=== PATIENT | female | born 1945 | race Caucasian/White ===

== ENCOUNTER 2017-11-30 13:30 | Inpatient (IN) | payer MEDICARE, MEDICAID ==
[~2017-11-30] VITALS: Ht 170.2 cm; Wt 134.0 kg
[2017-11-30] MEDS: FAMOTIDINE 20 MG TAB PO SCH (01:05)
[~2017-11-30 13:30] MED LIST: ALBU1.257 NEB; ASPI325T4 PO; ATO40T PO; AZIT250T8 PO; HYDR-4683 PO; ISOS60TA PO; LEVO750T2 PO; LINE600T PO; LORA-655 PO; MIRT30TA3 PO; PRED-188 PO; QUET100T38 PO; SACC250C PO
[2017-11-30 13:40] VITALS: BP 127/82
[2017-11-30 14:08] LABS: Basophils # (auto) 0.1 uL; Basophils % (auto) 1.1 % (0.0-2.0); Eosinophils # (auto) 0.7 uL; Hematocrit 31.9 % (36.0-46.0); Hemoglobin 10.9 g/dL (12.2-16.2); Lymphocytes % (auto) 27.8 % (10.0-50.0); Mean Corpuscular Hemoglobin 33.1 pg (28.0-32.0); Mean Corpuscular Hgb Conc. 34.1 g/dL (32.0-36.0); Mean Corpuscular Volume 97.1 fL (80.0-100.0); Monocytes # (auto) 0.9 uL; Monocytes % (auto) 8.6 % (0.0-12.0); Neutrophils # (auto) 6.1 uL; Neutrophils % (auto) 56.5 % (37.0-80.0); Platelet Count (auto) 295 10^3/uL (140-450); Red Blood Cells 3.29 10^6/uL (4.0-5.20); Red Cell Distribution Width 16.3 % (11.8-14.3); White Blood Cell 10.9 10^3/uL (4.4-10.8)
[2017-11-30 14:37] LABS: Alanine Aminotransferase 30 U/L (13-56); Albumin 3.3 g/dL (3.4-5.0); Alkaline Phosphatase 141 U/L (45-117); Anion Gap 14 (5-15); Aspartate Aminotransferase 14 U/L (15-37); BUN/Creatinine Ratio 47.3; Bilirubin, Total 0.3 mg/dL (0.2-1.0); Calcium 10.1 mg/dL (8.5-10.1); Carbon Dioxide 25 mmol/L (21-32); Chloride 93 mmol/L (98-107); GFR African American 31 mL/min; GFR Non-African American 26 mL/min; Glucose 227 mg/dL (74-106); Potassium 4.3 mmol/L (3.5-5.1); Sodium 132 mmol/L (136-145); Total Protein 7.6 g/dL (6.4-8.2)
[2017-11-30 14:51] LABS: Blood Urea Nitrogen 96 mg/dL (7-18)
[2017-11-30] MEDS ORDERED: NITROGLYCERIN 0.4 MG SL TAB SL PRN (15:45)
[2017-11-30] MEDS ORDERED: MORPHINE SULFATE 4 MG/ML SYR/VIAL IV PRN (15:45)
[2017-11-30] MEDS ORDERED: DEXTROSE (50%) 50ML SYRG IV PRN (15:45)
[2017-11-30 16:00] VITALS: BP 157/66
[2017-11-30] MEDS ORDERED: ONDANSETRON HCL 4 MG/2 ML VIAL IV PRN (16:00)
[2017-11-30] MEDS: SODIUM CHLORIDE 0.9% 1,000 ML IV SCH (16:00)
[2017-11-30] MEDS ORDERED: HYDROmorphone HCL 2 MG/ML VL IV PRN (16:00)
[2017-11-30 17:17] VITALS: BP 157/66
[2017-11-30 18:01] VITALS: BP 118/62
[2017-11-30] MEDS: IPRATROPIUM BROM 0.5 MG/2.5ML INH SOL NEB SCH (18:01)
[2017-11-30] MEDS: ALBUTEROL SULF 2.5 MG/0.5ML(0.5%) NEB SOLN NEB SCH (18:01)
[2017-11-30] MEDS: PIPERACILLIN-TAZOB 2.25GM 50 ML IV SCH (18:48)
[2017-11-30 18:57] LABS: Urine Bacteria FEW /hpf (None Seen); Urine Blood Negative /uL (Negative); Urine Specific Gravity 1.011 (1.001-1.035); Urine WBC 102 /hpf (0 - 5)
[2017-11-30] MEDS: ACCU-CHEK COMFORT CURVE STRIP VI SCH (18:57)
[2017-11-30] MEDS: InsuLIN REG 1unit/0.01ml Soln (100units/ml) SC SCH (18:57)
[2017-11-30 20:06] VITALS: BP 153/71
[2017-11-30 22:01] VITALS: BP 121/54
[2017-12-01] VITALS (8 sets, daily range): BP systolic 103–149; BP diastolic 52–71
[2017-12-01] MEDS: PHENYTOIN 100 MG/4 ML SUSP GT SCH ×4 (01:05→21:39)
[2017-12-01] MEDS: PIPERACILLIN-TAZOB 2.25GM 50 ML IV SCH ×4 (01:13→18:00)
[2017-12-01] MEDS: ACCU-CHEK COMFORT CURVE STRIP VI SCH ×4 (01:25→18:00)
[2017-12-01] MEDS: InsuLIN REG 1unit/0.01ml Soln (100units/ml) SC SCH ×4 (01:35→18:00)
[2017-12-01] MEDS: Glucerna 1.2 Cal 1Liter BOTTLE GT SCH ×2 (02:00→21:00)
[2017-12-01] MEDS: SODIUM CHLORIDE 0.9% 1,000 ML IV SCH ×3 (02:50→21:40)
[2017-12-01] MEDS ORDERED: diphenhdrAMINE HCL 50 MG/1 ML VL IV ONE (04:30)
[2017-12-01] MEDS: IPRATROPIUM BROM 0.5 MG/2.5ML INH SOL NEB SCH ×4 (06:00→18:42)
[2017-12-01] MEDS: ALBUTEROL SULF 2.5 MG/0.5ML(0.5%) NEB SOLN NEB SCH ×4 (06:00→18:42)
[2017-12-01] MEDS: ENOXAPARIN SOD 40 MG/0.4 ML SYRINGE SC SCH (09:16)
[2017-12-01] MEDS: FAMOTIDINE 20 MG TAB PO SCH ×2 (09:16→21:39)
[2017-12-01 10:19] LABS: Hematocrit 29.4 % (36.0-46.0); Mean Corpuscular Hemoglobin 33.6 pg (28.0-32.0); Mean Corpuscular Hgb Conc. 34.2 g/dL (32.0-36.0); Mean Corpuscular Volume 98.3 fL (80.0-100.0); Platelet Count (auto) 296 10^3/uL (140-450); Red Blood Cells 2.99 10^6/uL (4.0-5.20); Red Cell Distribution Width 16.3 % (11.8-14.3)
[2017-12-01 10:27] LABS: Basophils % (manual) 0 (0.0-2.0); Blast Cells 0; Myelocytes % 0; Promyelocytes % 0; Reactive Lymphocytes 0
[2017-12-01 10:30] LABS: INR 0.97 (0.9-1.15); Partial Thromboplastin Time 26.3 sec (23.78-33.04); Prothrombin Time 10.4 sec (9.27-12.13)
[2017-12-01 10:36] LABS: Calcium 9.3 mg/dL (8.5-10.1); Potassium 3.8 mmol/L (3.5-5.1)
[2017-12-01 13:14] LABS: Eosinophils % (manual) 6 (0-7); Lymphocytes % (manual) 27 (10.0-50.0); Metamyelocytes % 2; Monocytes % (manual) 9 (0-12)
[2017-12-01 13:15] LABS: Band Neutrophils % (manual) 3
[2017-12-02] MEDS: PIPERACILLIN-TAZOB 2.25GM 50 ML IV SCH ×4 (00:05→18:22)
[2017-12-02] MEDS: InsuLIN REG 1unit/0.01ml Soln (100units/ml) SC SCH ×4 (00:09→18:21)
[2017-12-02] MEDS: ACCU-CHEK COMFORT CURVE STRIP VI SCH ×4 (00:09→18:21)
[2017-12-02] MEDS: ALBUTEROL SULF 2.5 MG/0.5ML(0.5%) NEB SOLN NEB SCH ×4 (00:10→18:52)
[2017-12-02] MEDS: IPRATROPIUM BROM 0.5 MG/2.5ML INH SOL NEB SCH ×4 (00:10→18:52)
[2017-12-02] MEDS ORDERED: DOCU100T15 PO (02:25)
[2017-12-02] MEDS ORDERED: LACTCAP3 OR (02:25)
[2017-12-02] MEDS ORDERED: ASCO-22 PO (02:25)
[2017-12-02] MEDS ORDERED: ENOX80IN SC (02:38)
[2017-12-02] MEDS ORDERED: ZINC220C8 PO (02:38)
[2017-12-02] MEDS ORDERED: IBUP400T21 PO (02:38)
[2017-12-02] MEDS ORDERED: ATEN100T PO (02:38)
[2017-12-02] MEDS ORDERED: FERR-20 PO (02:38)
[2017-12-02] MEDS ORDERED: ACE3T PO (02:38)
[2017-12-02] MEDS ORDERED: MULTTAB99 GT (02:38)
[2017-12-02] MEDS ORDERED: LISI-646 PO (02:38)
[2017-12-02] MEDS ORDERED: PHEN50CH4 OR (02:38)
[2017-12-02 05:16] VITALS: BP 117/61
[2017-12-02] MEDS: PHENYTOIN 100 MG/4 ML SUSP GT SCH ×3 (06:52→22:58)
[2017-12-02 09:00] VITALS: BP 110/62
[2017-12-02] MEDS: SODIUM CHLORIDE 0.9% 1,000 ML IV SCH ×2 (10:41→18:18)
[2017-12-02] MEDS: ENOXAPARIN SOD 40 MG/0.4 ML SYRINGE SC SCH (10:43)
[2017-12-02] MEDS: FAMOTIDINE 20 MG TAB PO SCH ×2 (10:43→22:08)
[2017-12-02 13:00] VITALS: BP 133/81
[2017-12-02 13:07] VITALS: BP 112/64
[2017-12-02 17:00] VITALS: BP 116/60
[2017-12-02 22:00] VITALS: BP 149/78
[2017-12-02] MEDS: HYDROcodone-ACET 5/325MG TAB PO PRN (22:09)
[2017-12-02] MEDS: Glucerna 1.2 Cal 1Liter BOTTLE GT SCH (23:54)
[2017-12-03] MEDS: PIPERACILLIN-TAZOB 2.25GM 50 ML IV SCH ×4 (00:50→18:55)
[2017-12-03] MEDS: ACCU-CHEK COMFORT CURVE STRIP VI SCH ×4 (00:50→17:01)
[2017-12-03] MEDS: IPRATROPIUM BROM 0.5 MG/2.5ML INH SOL NEB SCH ×4 (00:52→18:06)
[2017-12-03] MEDS: ALBUTEROL SULF 2.5 MG/0.5ML(0.5%) NEB SOLN NEB SCH ×4 (00:52→18:06)
[2017-12-03] MEDS: InsuLIN REG 1unit/0.01ml Soln (100units/ml) SC SCH ×4 (00:55→17:02)
[2017-12-03 05:00] VITALS: BP 137/73
[2017-12-03 05:48] LABS: Basophils # (auto) 0 uL; Basophils % (auto) 0.6 % (0.0-2.0); Eosinophils # (auto) 0.4 uL; Eosinophils % (auto) 6.7 % (0.0-7.0); Hematocrit 27.9 % (36.0-46.0); Hemoglobin 9.5 g/dL (12.2-16.2); Lymphocytes # (auto) 1.6 uL; Lymphocytes % (auto) 24.9 % (10.0-50.0); Mean Corpuscular Hgb Conc. 33.9 g/dL (32.0-36.0); Mean Corpuscular Volume 100.3 fL (80.0-100.0); Monocytes # (auto) 0.7 uL; Monocytes % (auto) 11.2 % (0.0-12.0); Neutrophils # (auto) 3.6 uL; Neutrophils % (auto) 56.6 % (37.0-80.0); Nucleated Red Blood Cells % 0.1 %; Platelet Count (auto) 260 10^3/uL (140-450); Red Blood Cells 2.78 10^6/uL (4.0-5.20); White Blood Cell 6.4 10^3/uL (4.4-10.8)
[2017-12-03 05:58] LABS: BUN/Creatinine Ratio 36.5; Calcium 8.8 mg/dL (8.5-10.1); Potassium 3.7 mmol/L (3.5-5.1)
[2017-12-03] MEDS: PHENYTOIN 100 MG/4 ML SUSP GT SCH ×3 (06:10→22:15)
[2017-12-03] MEDS: SODIUM CHLORIDE 0.9% 1,000 ML IV SCH ×2 (06:28→13:58)
[2017-12-03 09:00] VITALS: BP 131/70
[2017-12-03] MEDS: ENOXAPARIN SOD 40 MG/0.4 ML SYRINGE SC SCH (12:32)
[2017-12-03] MEDS: FAMOTIDINE 20 MG TAB PO SCH ×2 (12:32→22:15)
[2017-12-03 12:47] VITALS: BP 148/76
[2017-12-03 13:24] VITALS: BP 148/76
[2017-12-03 17:00] VITALS: BP 155/79
[2017-12-03 21:44] VITALS: BP 162/98
[2017-12-03] MEDS: HYDROcodone-ACET 5/325MG TAB PO PRN (22:15)
[2017-12-03] MEDS: Glucerna 1.2 Cal 1Liter BOTTLE GT SCH (23:15)
[2017-12-04] MEDS: ACCU-CHEK COMFORT CURVE STRIP VI SCH ×4 (00:01→18:07)
[2017-12-04] MEDS: SODIUM CHLORIDE 0.9% 1,000 ML IV SCH ×3 (00:01→19:45)
[2017-12-04] MEDS: InsuLIN REG 1unit/0.01ml Soln (100units/ml) SC SCH ×4 (00:01→18:16)
[2017-12-04] MEDS: PIPERACILLIN-TAZOB 2.25GM 50 ML IV SCH ×3 (00:01→11:34)
[2017-12-04] MEDS: IPRATROPIUM BROM 0.5 MG/2.5ML INH SOL NEB SCH ×4 (00:46→18:26)
[2017-12-04] MEDS: ALBUTEROL SULF 2.5 MG/0.5ML(0.5%) NEB SOLN NEB SCH ×4 (00:46→18:26)
[2017-12-04 04:47] VITALS: BP 155/86
[2017-12-04] MEDS: PHENYTOIN 100 MG/4 ML SUSP GT SCH ×3 (06:25→22:00)
[2017-12-04 07:19] VITALS: BP 135/69
[2017-12-04 08:09] LABS: Basophils # (auto) 0 uL; Basophils % (auto) 0.6 % (0.0-2.0); Eosinophils # (auto) 0.5 uL; Eosinophils % (auto) 6.1 % (0.0-7.0); Hematocrit 27.3 % (36.0-46.0); Hemoglobin 9.3 g/dL (12.2-16.2); Lymphocytes # (auto) 1.5 uL; Lymphocytes % (auto) 18.9 % (10.0-50.0); Mean Corpuscular Hemoglobin 33.7 pg (28.0-32.0); Mean Corpuscular Volume 99.1 fL (80.0-100.0); Monocytes # (auto) 0.7 uL; Monocytes % (auto) 8.4 % (0.0-12.0); Neutrophils # (auto) 5.3 uL; Platelet Count (auto) 258 10^3/uL (140-450); Red Blood Cells 2.75 10^6/uL (4.0-5.20); Red Cell Distribution Width 15.6 % (11.8-14.3)
[2017-12-04 08:26] LABS: BUN/Creatinine Ratio 30.4; Calcium 8.6 mg/dL (8.5-10.1); Potassium 3.4 mmol/L (3.5-5.1)
[2017-12-04] MEDS: FAMOTIDINE 20 MG TAB PO SCH ×2 (10:24→22:00)
[2017-12-04] MEDS: ENOXAPARIN SOD 40 MG/0.4 ML SYRINGE SC SCH (10:25)
[2017-12-04 13:14] VITALS: BP 127/73
[2017-12-04 16:40] VITALS: BP 142/80
[2017-12-04] MEDS ORDERED: PIPERACILLIN-TAZOB 3.375GM 100 ML IV SCH (18:00)
== END 2017-12-04 22:30 | DRG 870 ==
LOC: EDBD 13:30 → ER 13:33 → TELE 13:34 → TELE-CENTR 12-01 08:37
PROVIDERS: ADMIT Internal Medicine; ATTEND Internal Medicine Cardiovascular Disease
PROC: 5A1955Z Respiratory Ventilation, Greater than 96 Consecutive Hours (ICD-10-PCS; principal; 2017-11-30)
DX: A41.9 Sepsis, unspecified organism (principal); G93.40 Encephalopathy, unspecified; N17.9 Acute kidney failure, unspecified; J96.10 Chronic respiratory failure, unspecified whether with hypoxia or hypercapnia; I50.32 Chronic diastolic (congestive) heart failure; Z68.42 Body mass index [BMI] 45.0-49.9, adult; Z99.11 Dependence on respirator [ventilator] status; I11.0 Hypertensive heart disease with heart failure; D64.9 Anemia, unspecified; E86.9 Volume depletion, unspecified; E11.9 Type 2 diabetes mellitus without complications; E66.01 Morbid (severe) obesity due to excess calories; F03.90 Unspecified dementia, unspecified severity, without behavioral disturbance, psychotic disturbance, mood disturbance, and anxiety; G40.909 Epilepsy, unspecified, not intractable, without status epilepticus; I25.10 Atherosclerotic heart disease of native coronary artery without angina pectoris; I70.0 Atherosclerosis of aorta; J44.9 Chronic obstructive pulmonary disease, unspecified; Z87.820 Personal history of traumatic brain injury; Z90.710 Acquired absence of both cervix and uterus; Z88.5 Allergy status to narcotic agent; Z79.899 Other long term (current) drug therapy; Z79.82 Long term (current) use of aspirin; Z79.51 Long term (current) use of inhaled steroids; Z93.0 Tracheostomy status; Z90.49 Acquired absence of other specified parts of digestive tract
CPT/HCPCS: 36415; 36600; 70450; 71045; 80048; 80053; 80185; 81001; 82805; 82962; 84484; 85007; 85025; 85027; 85610; 85730; 87040; 87070; 87077; 87081; 87086; 87088; 87186; 87205; 93005; 94002; 94003; 94640; A4605; J1642; J1815; J2543

== ENCOUNTER 2018-01-08 14:57 | Inpatient (IN) | payer MEDICARE, MEDICAID ==
[~2018-01-08] VITALS: Ht 157.5 cm; Wt 121.6 kg
[~2018-01-08 14:57] MED LIST changes: +ACE3T PO; +ASCO-22 PO; +ATEN100T PO; +DOCU100T15 PO; +ENOX80IN SC; +FERR-20 PO; +IBUP400T21 PO; +LACTCAP3 OR; +LINE1TAB6 PO; -LINE600T PO; +LISI-646 PO; +MULTTAB99 GT; +PHEN50CH4 OR; +ZINC220C8 PO
[2018-01-08 16:29] LABS: Hemoglobin 10.2 g/dL (12.2-16.2)
[2018-01-08 16:30] LABS: Hematocrit 29.3 % (36.0-46.0); Mean Corpuscular Hemoglobin 34.5 pg (28.0-32.0); Mean Corpuscular Hgb Conc. 34.9 g/dL (32.0-36.0); Mean Corpuscular Volume 98.9 fL (80.0-100.0); Platelet Count (auto) 311 10^3/uL (140-450); Red Blood Cells 2.96 10^6/uL (4.0-5.20); Red Cell Distribution Width 14.4 % (11.8-14.3); White Blood Cell 11.1 10^3/uL (4.4-10.8)
[2018-01-08 16:44] LABS: Albumin 3.2 g/dL (3.4-5.0); BUN/Creatinine Ratio 34.1; Bilirubin, Total 0.2 mg/dL (0.2-1.0); Calcium 9.7 mg/dL (8.5-10.1); Magnesium 2.3 mg/dL (1.6-2.6); Potassium 3.5 mmol/L (3.5-5.1); Total Protein 6.9 g/dL (6.4-8.2)
[2018-01-08 17:01] LABS: Lactic Acid w/Reflex 3.6 mmol/L (0.4-2.0)
[2018-01-08 17:02] LABS: Basophils % (manual) 0 (0.0-2.0); Blast Cells 0; Eosinophils % (manual) 0 (0-7); Promyelocytes % 0; Reactive Lymphocytes 0
[2018-01-08] MEDS ORDERED: cefTRIAXone 1GM/10ml IVPUSH 10 ML IV ONE (18:00)
[2018-01-08] MEDS ORDERED: AZITHROMYCIN 500MG/ 250ML 250 ML IV ONE (18:00)
[2018-01-08 18:20] VITALS: BP 130/73
[2018-01-08 19:13] LABS: Band Neutrophils % (manual) 1; Lymphocytes % (manual) 19 (10.0-50.0); Monocytes % (manual) 8 (0-12)
[2018-01-08 19:14] LABS: Metamyelocytes % 1; Myelocytes % 1
[2018-01-08] MEDS ORDERED: ACETYLCYSTEINE ORAL for CIN 20%(200MG/ML) 4ML PO ONE (19:15)
[2018-01-08 19:42] LABS: Urine Amorphous Crystal FEW /hpf (None Seen); Urine Bacteria FEW /hpf (None Seen); Urine Blood Negative /uL (Negative); Urine Specific Gravity 1.011 (1.001-1.035); Urine WBC <1 /hpf (0 - 5)
[2018-01-08] MEDS ORDERED: ACETYLCYSTEINE 20%(200MG/ML) SOLN 30ML ONE (19:50)
[2018-01-08 20:26] VITALS: BP 146/80
[2018-01-08] MEDS ORDERED: NITROGLYCERIN 0.4 MG SL TAB SL PRN (20:45)
[2018-01-08] MEDS ORDERED: SODIUM CHL 3% 500 ML IV ONE (20:45)
[2018-01-08 21:25] VITALS: BP 146/80
[2018-01-08] MEDS: cefTAZidime 1 GM in SODIUM CHL 0.9% 50 ML IV SCH (21:44)
[2018-01-08] MEDS: VANCOMYCIN 1GM/250ML 250 ML IV SCH (22:00)
[2018-01-08 22:05] VITALS: BP 134/78
[2018-01-08 22:58] VITALS: BP 144/67
[2018-01-09] MEDS: IPRATROPIUM BROM 0.5 MG/2.5ML INH SOL NEB SCH ×4 (00:30→18:20)
[2018-01-09] MEDS: ALBUTEROL SULF 2.5 MG/0.5ML(0.5%) NEB SOLN NEB SCH ×4 (00:30→18:20)
[2018-01-09 04:47] VITALS: BP 117/53
[2018-01-09 09:00] VITALS: BP 120/65
[2018-01-09] MEDS: cefTAZidime 1 GM in SODIUM CHL 0.9% 50 ML IV SCH ×2 (10:29→23:29)
[2018-01-09 13:00] VITALS: BP 98/53
[2018-01-09 13:34] LABS: Basophils # (auto) 0 uL; Basophils % (auto) 0.4 % (0.0-2.0); Eosinophils # (auto) 0.3 uL; Hematocrit 30.2 % (36.0-46.0); Lymphocytes # (auto) 1.5 uL; Lymphocytes % (auto) 17.3 % (10.0-50.0); Mean Corpuscular Hemoglobin 33.4 pg (28.0-32.0); Mean Corpuscular Hgb Conc. 33.2 g/dL (32.0-36.0); Mean Corpuscular Volume 100.7 fL (80.0-100.0); Monocytes # (auto) 0.5 uL; Monocytes % (auto) 6.4 % (0.0-12.0); Neutrophils # (auto) 6.2 uL; Neutrophils % (auto) 72.9 % (37.0-80.0); Nucleated Red Blood Cells % 0.1 %; Platelet Count (auto) 293 10^3/uL (140-450); Red Cell Distribution Width 15.2 % (11.8-14.3); White Blood Cell 8.4 10^3/uL (4.4-10.8)
[2018-01-09 14:00] LABS: BUN/Creatinine Ratio 33.6; Bilirubin, Total 0.2 mg/dL (0.2-1.0); Potassium 3.7 mmol/L (3.5-5.1); Total Protein 6.6 g/dL (6.4-8.2)
[2018-01-09] MEDS: Glucerna 1.2 Cal 1Liter BOTTLE GT SCH (14:54)
[2018-01-09 17:00] VITALS: BP 114/65
[2018-01-09] MEDS ORDERED: DEXTROSE (50%) 50ML SYRG IV PRN (17:00)
[2018-01-09] MEDS: InsuLIN REG 1unit/0.01ml Soln (100units/ml) SC SCH (20:21)
[2018-01-09] MEDS: ACCU-CHEK COMFORT CURVE STRIP VI SCH (20:22)
[2018-01-09 22:00] VITALS: BP 116/63
[2018-01-09] MEDS: VANCOMYCIN 1GM/250ML 250 ML IV SCH (23:29)
[2018-01-10] VITALS (8 sets, daily range): BP systolic 116–132; BP diastolic 55–68
[2018-01-10] MEDS: ALBUTEROL SULF 2.5 MG/0.5ML(0.5%) NEB SOLN NEB SCH ×4 (00:32→19:11)
[2018-01-10] MEDS: IPRATROPIUM BROM 0.5 MG/2.5ML INH SOL NEB SCH ×4 (00:32→19:11)
[2018-01-10] MEDS: ACCU-CHEK COMFORT CURVE STRIP VI SCH ×6 (00:56→23:26)
[2018-01-10] MEDS: InsuLIN REG 1unit/0.01ml Soln (100units/ml) SC SCH ×6 (00:56→23:26)
[2018-01-10] MEDS: cefTAZidime 1 GM in SODIUM CHL 0.9% 50 ML IV SCH ×2 (10:41→23:30)
[2018-01-10] MEDS: VANCOMYCIN 1GM/250ML 250 ML IV SCH (22:52)
[2018-01-11] MEDS: IPRATROPIUM BROM 0.5 MG/2.5ML INH SOL NEB SCH ×5 (00:34→23:57)
[2018-01-11] MEDS: ALBUTEROL SULF 2.5 MG/0.5ML(0.5%) NEB SOLN NEB SCH ×5 (00:35→23:57)
[2018-01-11] MEDS: ACCU-CHEK COMFORT CURVE STRIP VI SCH ×6 (02:14→19:50)
[2018-01-11] MEDS: InsuLIN REG 1unit/0.01ml Soln (100units/ml) SC SCH ×6 (02:14→19:50)
[2018-01-11 05:00] VITALS: BP 111/57
[2018-01-11 06:06] LABS: Basophils # (auto) 0.1 uL; Basophils % (auto) 0.5 % (0.0-2.0); Eosinophils # (auto) 0.3 uL; Monocytes # (auto) 0.7 uL; White Blood Cell 10.1 10^3/uL (4.4-10.8)
[2018-01-11 06:09] LABS: Eosinophils % (auto) 2.8 % (0.0-7.0); Hematocrit 30.6 % (36.0-46.0); Hemoglobin 10.6 g/dL (12.2-16.2); Lymphocytes # (auto) 1.4 uL; Lymphocytes % (auto) 14.1 % (10.0-50.0); Mean Corpuscular Hemoglobin 35.2 pg (28.0-32.0); Mean Corpuscular Hgb Conc. 34.7 g/dL (32.0-36.0); Mean Corpuscular Volume 101.3 fL (80.0-100.0); Monocytes % (auto) 6.9 % (0.0-12.0); Neutrophils # (auto) 7.7 uL; Neutrophils % (auto) 75.7 % (37.0-80.0); Nucleated Red Blood Cells % 0.1 %; Platelet Count (auto) 291 10^3/uL (140-450); Red Blood Cells 3.02 10^6/uL (4.0-5.20)
[2018-01-11 09:00] VITALS: BP 116/72
[2018-01-11] MEDS: cefTAZidime 1 GM in SODIUM CHL 0.9% 50 ML IV SCH (10:25)
[2018-01-11 11:35] LABS: Albumin 3.1 g/dL (3.4-5.0); BUN/Creatinine Ratio 31.6; Bilirubin, Total 0.2 mg/dL (0.2-1.0); Calcium 9.9 mg/dL (8.5-10.1); Potassium 3.9 mmol/L (3.5-5.1); Total Protein 7.2 g/dL (6.4-8.2)
[2018-01-11] MEDS ORDERED: HYDROmorphone HCL 2 MG/ML VL IV PRN (12:00)
[2018-01-11] MEDS: HYDROmorphone HCL 2 MG/ML VL IV PRN ×3 (12:30→18:00)
[2018-01-11 13:00] VITALS: BP 112/59
[2018-01-11] MEDS: PIPERACILLIN-TAZO 4.5GM 100 ML IV SCH ×2 (14:31→23:58)
[2018-01-11 17:00] VITALS: BP 113/42
[2018-01-11 22:00] VITALS: BP 122/69
[2018-01-11] MEDS: VANCOMYCIN 1GM/250ML 250 ML IV SCH (22:20)
[2018-01-12] VITALS (7 sets, daily range): BP systolic 100–124; BP diastolic 32–58
[2018-01-12] MEDS: InsuLIN REG 1unit/0.01ml Soln (100units/ml) SC SCH ×6 (00:12→19:43)
[2018-01-12] MEDS: ACCU-CHEK COMFORT CURVE STRIP VI SCH ×6 (00:12→19:43)
[2018-01-12] MEDS: IPRATROPIUM BROM 0.5 MG/2.5ML INH SOL NEB SCH ×4 (05:44→23:24)
[2018-01-12] MEDS: ALBUTEROL SULF 2.5 MG/0.5ML(0.5%) NEB SOLN NEB SCH ×4 (05:44→23:24)
[2018-01-12] MEDS: PIPERACILLIN-TAZO 4.5GM 100 ML IV SCH ×2 (05:45→14:00)
[2018-01-12] MEDS: HYDROmorphone HCL 2 MG/ML VL IV PRN ×5 (07:30→18:01)
[2018-01-12] MEDS: Glucerna 1.2 Cal 1Liter BOTTLE GT SCH (10:28)
[2018-01-12] MEDS: VANCOMYCIN 1GM/250ML 250 ML IV SCH (22:00)
[2018-01-13] MEDS: PIPERACILLIN-TAZO 4.5GM 100 ML IV SCH ×3 (00:05→13:39)
[2018-01-13] MEDS: ACCU-CHEK COMFORT CURVE STRIP VI SCH ×5 (00:05→18:18)
[2018-01-13] MEDS: InsuLIN REG 1unit/0.01ml Soln (100units/ml) SC SCH ×5 (00:05→18:18)
[2018-01-13 05:41] VITALS: BP 116/55
[2018-01-13] MEDS: ALBUTEROL SULF 2.5 MG/0.5ML(0.5%) NEB SOLN NEB SCH ×3 (05:44→17:55)
[2018-01-13] MEDS: IPRATROPIUM BROM 0.5 MG/2.5ML INH SOL NEB SCH ×3 (05:44→17:55)
[2018-01-13 06:00] LABS: Basophils # (auto) 0 uL; Basophils % (auto) 0.4 % (0.0-2.0); Eosinophils # (auto) 0.3 uL; Hematocrit 26.7 % (36.0-46.0); Hemoglobin 9.3 g/dL (12.2-16.2); Lymphocytes # (auto) 1.4 uL; Monocytes # (auto) 0.5 uL; White Blood Cell 10.3 10^3/uL (4.4-10.8)
[2018-01-13 06:03] LABS: Eosinophils % (auto) 2.8 % (0.0-7.0); Lymphocytes % (auto) 13.5 % (10.0-50.0); Mean Corpuscular Hgb Conc. 34.8 g/dL (32.0-36.0); Monocytes % (auto) 4.9 % (0.0-12.0); Neutrophils % (auto) 78.4 % (37.0-80.0); Platelet Count (auto) 253 10^3/uL (140-450); Red Blood Cells 2.63 10^6/uL (4.0-5.20); Red Cell Distribution Width 14.9 % (11.8-14.3)
[2018-01-13 06:04] LABS: Mean Corpuscular Hemoglobin 35.1 pg (28.0-32.0); Mean Corpuscular Volume 101.1 fL (80.0-100.0)
[2018-01-13 06:28] LABS: Potassium 3.7 mmol/L (3.5-5.1)
[2018-01-13 06:35] LABS: Albumin 2.6 g/dL (3.4-5.0); BUN/Creatinine Ratio 21.9; Calcium 9.2 mg/dL (8.5-10.1)
[2018-01-13 06:38] LABS: Bilirubin, Total 0.4 mg/dL (0.2-1.0); Total Protein 6.2 g/dL (6.4-8.2)
[2018-01-13 07:52] VITALS: BP 104/59
[2018-01-13 11:51] VITALS: BP 94/40
[2018-01-13 17:00] VITALS: BP 96/39
== END 2018-01-13 18:33 | disposition home or self-care (01) | DRG 870 ==
LOC: EDBD 14:57 → ER 14:57 → TELE 14:58 → TELE-EAST 22:58
PROVIDERS: ADMIT Internal Medicine Cardiovascular Disease; ATTEND Internal Medicine Cardiovascular Disease
PROC: 5A1955Z Respiratory Ventilation, Greater than 96 Consecutive Hours (ICD-10-PCS; principal; 2018-01-08)
PROC: 0BH17EZ Insertion of Endotracheal Airway into Trachea, Via Natural or Artificial Opening (ICD-10-PCS; 2018-01-08)
DX: A41.9 Sepsis, unspecified organism (principal); J96.90 Respiratory failure, unspecified, unspecified whether with hypoxia or hypercapnia; E87.1 Hypo-osmolality and hyponatremia; E44.1 Mild protein-calorie malnutrition; E66.2 Morbid (severe) obesity with alveolar hypoventilation; Z99.11 Dependence on respirator [ventilator] status; Z68.42 Body mass index [BMI] 45.0-49.9, adult; E11.9 Type 2 diabetes mellitus without complications; E78.5 Hyperlipidemia, unspecified; I11.0 Hypertensive heart disease with heart failure; I25.10 Atherosclerotic heart disease of native coronary artery without angina pectoris; G40.909 Epilepsy, unspecified, not intractable, without status epilepticus; F03.90 Unspecified dementia, unspecified severity, without behavioral disturbance, psychotic disturbance, mood disturbance, and anxiety; J44.9 Chronic obstructive pulmonary disease, unspecified; I50.9 Heart failure, unspecified; Z86.73 Personal history of transient ischemic attack (TIA), and cerebral infarction without residual deficits; Z93.1 Gastrostomy status; Z90.710 Acquired absence of both cervix and uterus; Z93.0 Tracheostomy status; Z88.5 Allergy status to narcotic agent; Z88.8 Allergy status to other drugs, medicaments and biological substances
CPT/HCPCS: 36415; 36600; 71045; 71250; 74176; 80053; 80202; 81001; 82805; 82962; 83605; 83735; 84484; 85007; 85025; 85027; 87040; 87070; 87077; 87081; 87186; 87205; 92610; 93005; 93306; 94002; 94003; 94640; 96361; 96365; 96375; A4605; A6257; J0696; J1642; J1815; J2543

== ENCOUNTER 2018-01-15 18:01 | Observation (INO) | payer MEDICARE, MEDICAID ==
[~2018-01-15] VITALS: Ht 157.5 cm; Wt 136.1 kg
[2018-01-15 18:40] LABS: Eosinophils # (auto) 0.2 uL; Hemoglobin 9.6 g/dL (12.2-16.2); Lymphocytes # (auto) 1.8 uL; Monocytes # (auto) 0.5 uL; White Blood Cell 8.9 10^3/uL (4.4-10.8)
[2018-01-15 18:42] LABS: Basophils # (auto) 0.1 uL; Basophils % (auto) 0.9 % (0.0-2.0); Eosinophils % (auto) 2.2 % (0.0-7.0); Hematocrit 27.6 % (36.0-46.0); Lymphocytes % (auto) 20.1 % (10.0-50.0); Mean Corpuscular Hemoglobin 34.9 pg (28.0-32.0); Mean Corpuscular Hgb Conc. 34.9 g/dL (32.0-36.0); Monocytes % (auto) 5.7 % (0.0-12.0); Neutrophils # (auto) 6.4 uL; Neutrophils % (auto) 71.1 % (37.0-80.0); Nucleated Red Blood Cells % 0.1 %; Platelet Count (auto) 262 10^3/uL (140-450); Red Blood Cells 2.76 10^6/uL (4.0-5.20); Red Cell Distribution Width 14.6 % (11.8-14.3)
[2018-01-15 18:53] VITALS: BP 143/83
[2018-01-15 18:54] LABS: Albumin 2.7 g/dL (3.4-5.0); BUN/Creatinine Ratio 22.7; Bilirubin, Total 0.3 mg/dL (0.2-1.0); Calcium 9.3 mg/dL (8.5-10.1); Magnesium 2.5 mg/dL (1.6-2.6); Potassium 3.5 mmol/L (3.5-5.1); Total Protein 6.6 g/dL (6.4-8.2)
== END 2018-01-15 21:20 | disposition home or self-care (01) | DRG 204 ==
LOC: ER 18:01 → EDBD 18:01 → OVERFLOW 18:02 → ER 21:20
PROVIDERS: ADMIT Family Medicine; ATTEND Family Medicine
DX: R06.03 Acute respiratory distress (principal); I13.0 Hypertensive heart and chronic kidney disease with heart failure and stage 1 through stage 4 chronic kidney disease, or unspecified chronic kidney disease; Z99.11 Dependence on respirator [ventilator] status; I50.9 Heart failure, unspecified; E11.22 Type 2 diabetes mellitus with diabetic chronic kidney disease; N18.3 Chronic kidney disease, stage 3 (moderate); D63.8 Anemia in other chronic diseases classified elsewhere; Z86.73 Personal history of transient ischemic attack (TIA), and cerebral infarction without residual deficits; Z90.710 Acquired absence of both cervix and uterus; Z93.0 Tracheostomy status; Z93.1 Gastrostomy status; Z74.01 Bed confinement status; Z90.49 Acquired absence of other specified parts of digestive tract
CPT/HCPCS: 36415; 71045; 80053; 83735; 85025; 87070; 87077; 87186; 87205; 93005; 94002; 99285; G0378

== ENCOUNTER 2018-04-29 18:05 | Emergency (ER) | payer MEDICARE, MEDICAID ==
[2018-04-29 19:00] LABS: Eosinophils # (auto) 0.1 uL; Monocytes # (auto) 1.5 uL; Monocytes % (auto) 8.9 % (0.0-12.0)
[2018-04-29 19:01] LABS: Albumin 2.7 g/dL (3.4-5.0); BUN/Creatinine Ratio 24.7; Calcium 8.7 mg/dL (8.5-10.1); Potassium 3.6 mmol/L (3.5-5.1)
[2018-04-29 19:02] LABS: Basophils # (auto) 0.1 uL; Basophils % (auto) 0.4 % (0.0-2.0); Eosinophils % (auto) 0.7 % (0.0-7.0); Hematocrit 33.3 % (36.0-46.0); Mean Corpuscular Hgb Conc. 33.1 g/dL (32.0-36.0); Mean Corpuscular Volume 102.5 fL (80.0-100.0); Platelet Count (auto) 299 10^3/uL (140-450); Red Blood Cells 3.25 10^6/uL (4.0-5.20); Red Cell Distribution Width 15.4 % (11.8-14.3); White Blood Cell 16.7 10^3/uL (4.4-10.8)
[2018-04-29 19:03] LABS: Bilirubin, Total 0.4 mg/dL (0.2-1.0); Total Protein 6.7 g/dL (6.4-8.2)
[2018-04-29 21:19] LABS: Urine Bacteria NONE SEEN /hpf (None Seen); Urine Blood Negative /uL (Negative); Urine Specific Gravity 1.015 (1.001-1.035); Urine WBC <1 /hpf (0 - 5)
[2018-04-29 21:30] VITALS: BP 109/45
== END 2018-04-29 22:59 | disposition home or self-care (01) ==
LOC: EDBD 18:05 → EDUNIT# 18:05 → ER 18:10
DX: R41.82 Altered mental status, unspecified (principal); J06.9 Acute upper respiratory infection, unspecified; D72.829 Elevated white blood cell count, unspecified; E86.0 Dehydration; I11.0 Hypertensive heart disease with heart failure; I50.9 Heart failure, unspecified; E11.9 Type 2 diabetes mellitus without complications; E78.5 Hyperlipidemia, unspecified; Z90.49 Acquired absence of other specified parts of digestive tract; Z90.710 Acquired absence of both cervix and uterus
CPT/HCPCS: 36415; 36600; 80053; 81001; 82805; 83605; 85025; 87040; 87070; 87077; 87086; 87088; 87186; 87205; 93005; 94002

== ENCOUNTER 2019-05-04 17:00 | Emergency (ER) | payer MEDICARE, MEDICAID ==
[~2019-05-04] VITALS: Ht 157.5 cm; Wt 95.3 kg
[~2019-05-04 17:00] MED LIST changes: -HYDR-4683 PO; +HYDR-4833 PO; +MIRT1TAB39 PO; -MIRT30TA3 PO
[2019-05-04 18:00] LABS: Basophils # (auto) 0.1 uL; Eosinophils # (auto) 0.2 uL; Eosinophils % (auto) 1.7 % (0.0-7.0); Hematocrit 37.2 % (36.0-46.0); Hemoglobin 12.5 g/dL (12.2-16.2); Lymphocytes # (auto) 2.8 uL; Lymphocytes % (auto) 21.5 % (10.0-50.0); Mean Corpuscular Hemoglobin 33.1 pg (28.0-32.0); Mean Corpuscular Hgb Conc. 33.7 g/dL (32.0-36.0); Mean Corpuscular Volume 98.2 fL (80.0-100.0); Monocytes # (auto) 1.2 uL; Neutrophils # (auto) 8.7 uL; Neutrophils % (auto) 66.8 % (37.0-80.0); Nucleated Red Blood Cells % 0.1 %; Platelet Count (auto) 288 10^3/uL (140-450); Red Blood Cells 3.79 10^6/uL (4.0-5.20)
[2019-05-04 18:20] LABS: Albumin 2.7 g/dL (3.4-5.0); Anion Gap 8 (5-15); BUN/Creatinine Ratio 24.7; Blood Urea Nitrogen 24 mg/dL (7-18); Carbon Dioxide 25 mmol/L (21-32); Chloride 97 mmol/L (98-107); GFR African American 72 mL/min; GFR Non-African American 60 mL/min; Glucose 108 mg/dL (74-106); Potassium 4.5 mmol/L (3.5-5.1); Sodium 130 mmol/L (136-145)
[2019-05-04 18:23] LABS: Alanine Aminotransferase 27 U/L (13-56); Alkaline Phosphatase 133 U/L (45-117); Aspartate Aminotransferase 54 U/L (15-37); Bilirubin, Total 0.4 mg/dL (0.2-1.0); Total Protein 7.6 g/dL (6.4-8.2)
[2019-05-04 18:24] VITALS: BP 155/79
[2019-05-04 18:49] VITALS: BP 155/79
[2019-05-04 21:03] VITALS: BP 98/53
[2019-05-04 22:23] VITALS: BP 108/45
[2019-05-04] MEDS ORDERED: GASTROGRAFIN 30 ML SOL ONE (22:58)
[2019-05-05 00:12] VITALS: BP 111/42
[2019-05-05 02:41] VITALS: BP 116/44
[2019-05-05 04:05] VITALS: BP 101/43
[2019-05-05 05:43] VITALS: BP 91/57
[2019-05-05 06:00] VITALS: BP 104/47
== END 2019-05-05 07:45 | disposition home or self-care (01) ==
LOC: ER 17:00 → EDBD 17:00 → ER 05-05 07:45
DX: T85.518A Breakdown (mechanical) of other gastrointestinal prosthetic devices, implants and grafts, initial encounter (principal); K94.23 Gastrostomy malfunction; I11.0 Hypertensive heart disease with heart failure; I50.9 Heart failure, unspecified; E11.9 Type 2 diabetes mellitus without complications; Z90.49 Acquired absence of other specified parts of digestive tract; Z90.710 Acquired absence of both cervix and uterus; Z95.0 Presence of cardiac pacemaker; Z86.73 Personal history of transient ischemic attack (TIA), and cerebral infarction without residual deficits; Z88.6 Allergy status to analgesic agent; Z88.8 Allergy status to other drugs, medicaments and biological substances; Z79.899 Other long term (current) drug therapy
CPT/HCPCS: 36415; 36600; 43762; 74018; 74176; 80053; 82805; 85025; 99285; Q9963; 94002

== ENCOUNTER 2019-10-30 16:55 | Emergency (ER) | payer MEDICARE, MEDICAID ==
[~2019-10-30] VITALS: Ht 167.6 cm; Wt 90.7 kg
[~2019-10-30 16:55] MED LIST changes: -LEVO750T2 PO; +LEVO750T8 PO
[2019-10-30 18:20] LABS: Basophils # (auto) 0.1 10 ^3/uL (0-0.2); Basophils % (auto) 0.9 % (0.0-2.0); Eosinophils # (auto) 0.1 10 ^3/uL (0-0.8); Eosinophils % (auto) 0.7 % (0.0-7.0); Hematocrit 37.4 % (36.0-46.0); Hemoglobin 12.7 g/dL (12.2-16.2); Lymphocytes # (auto) 2.4 10 ^3/uL (0.4-5.4); Lymphocytes % (auto) 23.3 % (10.0-50.0); Mean Corpuscular Hemoglobin 32.6 pg (28.0-32.0); Mean Corpuscular Hgb Conc. 34.1 g/dL (32.0-36.0); Mean Corpuscular Volume 95.5 fL (80.0-100.0); Monocytes # (auto) 0.8 10 ^3/uL (0-1.3); Monocytes % (auto) 7.8 % (0.0-12.0); Neutrophils % (auto) 67.3 % (37.0-80.0); Platelet Count (auto) 275 10^3/uL (140-450); Red Blood Cells 3.91 10^6/uL (4.0-5.20); Red Cell Distribution Width 14.1 % (11.8-14.3); White Blood Cell 10.5 10^3/uL (4.4-10.8)
[2019-10-30 18:40] LABS: Calcium 9.2 mg/dL (8.5-10.1); Magnesium 2.2 mg/dL (1.6-2.6); Potassium 3.8 mmol/L (3.5-5.1)
[2019-10-30 18:44] LABS: Bilirubin, Total 0.2 mg/dL (0.2-1.0)
[2019-10-30 19:38] VITALS: BP 132/67
[2019-10-30 20:25] VITALS: BP 132/67
[2019-10-30 21:55] VITALS: BP 133/46
[2019-10-31 00:17] VITALS: BP 132/57
[2019-10-31 02:06] VITALS: BP 143/58
[2019-10-31 03:00] VITALS: BP 154/74
== END 2019-10-31 04:00 | disposition home or self-care (01) ==
LOC: EDBD 16:55 → ER 16:55 → EDUNIT# 16:55 → EDSEX 16:55 → ER 10-31 04:00
DX: J95.03 Malfunction of tracheostomy stoma (principal); G82.50 Quadriplegia, unspecified; E66.01 Morbid (severe) obesity due to excess calories; I11.0 Hypertensive heart disease with heart failure; I50.9 Heart failure, unspecified; E11.9 Type 2 diabetes mellitus without complications; E78.5 Hyperlipidemia, unspecified; Z90.49 Acquired absence of other specified parts of digestive tract; Z68.32 Body mass index [BMI] 32.0-32.9, adult; Z90.710 Acquired absence of both cervix and uterus; Z86.73 Personal history of transient ischemic attack (TIA), and cerebral infarction without residual deficits; Z88.8 Allergy status to other drugs, medicaments and biological substances
CPT/HCPCS: 36415; 36600; 71045; 80053; 82805; 83735; 85025; 87070; 87077; 87186; 87205; 94002

== ENCOUNTER 2019-12-23 00:03 | Emergency (ER) | payer MEDICARE, MEDICAID ==
[~2019-12-23] VITALS: Ht 167.6 cm; Wt 108.9 kg
[2019-12-23 06:20] VITALS: BP 114/86
== END 2019-12-23 06:51 | disposition home or self-care (01) ==
LOC: EDBD 00:03 → ER 00:03
DX: J95.03 Malfunction of tracheostomy stoma (principal); Z86.73 Personal history of transient ischemic attack (TIA), and cerebral infarction without residual deficits